=== PATIENT | female | born 1995 | race Caucasian/White ===

== ENCOUNTER 2021-01-27 07:25 | Inpatient (IN) ==
[2021-01-27] MEDS ORDERED: OXYTOCIN 30 UNITS/500 ML BAG IV PRN ×3 (07:53→19:01)
[2021-01-27] MEDS ORDERED: PENICILLIN G POTASSIUM 6 MU in DEXTROSE 5% 250 ML IV STA (07:53)
[2021-01-27] MEDS ORDERED: LACTATED RINGER'S 1,000 ML IV PRN (07:53)
--- NOTE | 2021-01-27 08:05 | History & Physical Report ---
Date of Service January 27, 2021 Assessment & Plan (1) Encounter for induction of labor: Plan: Kaya Read is a 25 y/o at 40 5/7 female presenting to L&D for IOL due to post dates. -Admit to L&D for IOL due to post dates. Received cervical singh yesterday for ripening. -Expect , augment with pitocin. -Epidural prn -GBS+--> treat with penicillin during labor -AB+, Antibody negative Admission and Anticipated Discharge Date Admission Date: January 27, 2021 History of Present Illness Primary Care Provider: NO PCP Kaya Read is a 25 y/o at 40 3/7 female presenting to L&D for IOL due to post dates. Pt has been having some intermittent contractions. No ROM noted at this time. No bloody vaginal discharge reported. Pt had reported to L&D yesterday for examination and had cervical singh placed for ripening. She was D/C'd home and was instructed to return today for IOL. Pt has no questions or complaints at this time. LMP: 04/19/20 : 1 Full term: 0 Premature: 0 Total Number of Induced Abortions: 0 Total Number of Spontaneous Abortions: 0 Ectopics: 0 Multiple births: 0 Number of Living Children: 0 Allergies Allergy/AdvReac Type Severity Reaction Status Date / Time naproxen Allergy Heart Verified 01/26/21 19:40 racing Home Medications Medication Instructions Recorded Confirmed Type doxylamine succinate 25 mg tablet 25 mg PO Q6H PRN 06/11/20 01/27/21 History (Unisom (doxylamine)) prenat.vits,carmen,[id number] 1 tab PO DAILY 06/11/20 01/27/21 History pyridoxine (vitamin B6) 25 mg 25 mg PO BID 06/11/20 01/27/21 History tablet (Vitamin B-6) cholecalciferol (vitamin D3) 50 50 mcg PO DAILY 01/27/21 01/27/21 History mcg (2,000 unit) capsule (Vitamin D3) Patient History Surgical History History of myringotomy S/P tonsillectomy S/P wisdom tooth extraction Family History Grandmother (Maternal) Breast cancer Grandmother (Paternal) Ovarian cancer Pancreatic cancer Social History (Updated 06/11/20 @ 10:04 by Kat Pereira) Smoking Status: Never smoker Second Hand Exposure: No; Hx Alcohol Use: No Hx Substance Use: No Preferred Language: Persian Communication Ability: Effective Bacon De Rinder Required: No Beliefs That Will Affect Care: None marital status: marital status details: Bassem [phone] Current Living Situation: Spouse Current Living Situation Comment: lives with spouse, 1 dog, 1 cat. spouse to change litter. current occupational status: student current occupation: Grad student. Other Information That Helps Us Care for You: No Feels Safe at Home: Yes Safety Concerns: Feels Safe At This Time Assistive Devices: None Review of Systems All systems reviewed & are unremarkable except as noted in HPI & below Physical Exam Physical Exam: General: Alert, oriented, no acute distress Cardiac: Regular rate and rhythm, normal S1, S2. No murmurs appreciated. Respiratory: Clear to auscultation b/l with good air flow entry, symmetric chest rise and fall. No wheezes or crackles. No increased work of breathing or accessory muscle use Abdomen: Gravid, soft, nontender. No guarding or CVA tenderness Skin: No rashes or lesions Extremities: Warm, dry, well-perfused with capillary refill <2s b/l. No lower extremity edema, erythema or swelling. Negative Orlando's sign b/l. Genitourinary: no vaginal lesions, no adnexal mass Manual OB Exam: + cervical dilation 3 cm, + cervical effacement 90% and + station -2 OB Exam Monitor Tracing: + external FHT monitor used, + category I and + normal FHT variability Results & Data ([facility]) Vital Signs (Past 12 Hours) Vital Signs Temp Pulse Resp BP 01/27/21 07:46 36.9 C 97 H 18 124/81 01/27/21 07:38 97 H 124/81
[2021-01-27 08:17] LABS: Hemoglobin 11.8 g/dL (12.0-16.0); Mean Corpuscular Hgb Conc 35.8 g/dL (32-36); Mean Corpuscular Volume 86.6 fL (80-100); Platelet Count 179 K/uL (130-400); RDW Coefficient of Variation 13.2 % (11.5-14.5); RDW Standard Deviation 42.2 fL (36.4-46.3); Red Blood Count 3.81 M/uL (4.2-5.4); White Blood Count 9.23 K/uL (4.8-10.8)
[2021-01-27] MEDS: PENICILLIN G POTASSIUM 3 MU in DEXTROSE 5% 100 ML IV PRN ×2 (12:46→16:51)
[2021-01-27] MEDS ORDERED: BUPIVACAINE 0.25% 30 ML VIAL ONE (12:53)
[2021-01-27] MEDS ORDERED: fentaNYL citrate 100 MCG/2 ML VIAL ONE (12:53)
[2021-01-27] MEDS ORDERED: ePHEDrine sulfate 50 MG/ML AMP ONE (12:53)
[2021-01-27] MEDS ORDERED: SODIUM CHLORIDE 0.9% INJ 10 ML VIAL ONE (12:53)
[2021-01-27] MEDS ORDERED: fentaNYL 2MCG/ML ROPIVACAINE 1.25MG/ML 100 ML BAG EPI ONE (12:54)
--- NOTE | 2021-01-27 13:21 | Anesthesiology Consultation ---
Date of Service January 27, 2021 Assessment & Plan (1) Encounter for pre-operative examination: Chart Review Chart Review: Acceptable Risk for Labor Epidural History Height/Weight Height: 5 ft 2 in Weight: 74.843 kg Allergies Allergy/AdvReac Type Severity Reaction Status Date / Time naproxen Allergy Heart Verified 01/26/21 19:40 racing Medications Home Medications Medication Instructions Recorded Confirmed Last Taken doxylamine succinate 25 mg tablet 25 mg PO Q6H PRN 06/11/20 01/27/21 01/26/21 22:00 (Unisom (doxylamine)) prenat.vits,carmen,[id number] 1 tab PO DAILY 06/11/20 01/27/21 01/26/21 22:00 pyridoxine (vitamin B6) 25 mg 25 mg PO BID 06/11/20 01/27/21 01/26/21 22:00 tablet (Vitamin B-6) cholecalciferol (vitamin D3) 50 50 mcg PO DAILY 01/27/21 01/27/21 01/27/21 06:15 mcg (2,000 unit) capsule (Vitamin D3) Active Medications Generic Name Dose Route Start Last Admin Trade Name Freq PRN Reason Stop Dose Admin Oxytocin 30 units in 500 mls @ 11 mls/hr 01/27/21 07:55 01/27/21 12:45 Pitocin IV 01/29/21 07:54 0.66 units/hr .Q24H PRN 11 mls/hr Labor Induction/Augmentation Titration Protocol 0.66 UNITS/HR Lactated Ringer's 1,000 mls @ 125 mls/hr 01/27/21 07:53 01/27/21 08:40 Lr IV 01/29/21 07:52 125 mls/hr .Q8H PRN Administration L&D Protocol Protocol Penicillin G Potassium 3 mu/ 106 mls @ 100 mls/hr 01/27/21 10:53 01/27/21 12:46 Dextrose IV 02/06/21 10:52 100 mls/hr Q4H PRN Administration Give until delivery Past Medical History Medical History (Updated 01/27/21 @ 13:21 by Wilfredo Mclaughlin MD) Mitral valve prolapse Past Family History Family History Grandmother (Maternal) Breast cancer Grandmother (Paternal) Ovarian cancer Pancreatic cancer Past Surgical History Surgical History History of myringotomy S/P tonsillectomy S/P wisdom tooth extraction Social History Smoking Status: Never smoker Hx Alcohol Use: No Hx Substance Use: No Physical Exam Vital Signs Last Vital Signs Temp 37.1 C 01/27/21 11:31 Pulse 71 01/27/21 12:46 Resp 18 01/27/21 11:31 BP 135/86 01/27/21 12:46 Testing Laboratory Results 01/27/21 08:05
[2021-01-27] MEDS ORDERED: fentaNYL 2MCG/ML ROPIVACAINE 1.25MG/ML 100 ML BAG EPI PRN (13:56)
[2021-01-27] MEDS ORDERED: NALOXONE HCL 0.4 MG/1 ML VIAL/CARP IV PRN (13:56)
[2021-01-27] MEDS ORDERED: ePHEDrine sulfate 50 MG/ML AMP IV PRN (13:56)
[2021-01-27] MEDS ORDERED: ONDANSETRON INJ 2 MG/ML 2 ML VIAL IV PRN (13:56)
--- NOTE | 2021-01-27 18:39 | Delivery Summary ---
Vaginal Delivery Summary Date of Service January 27, 2021 Vaginal Delivery Summary Patient induced for postdates initially with cervical Dow and then Pitocin she spontaneously ruptured membranes she was treated appropriately for group B strep prophylaxis received an epidural delivered a baby in occiput anterior position it should be noted she had a hymenal band which ran from anterior to posterior the store at delivery and I excised the remaining part prior to delayed delivery. There was a small thin band The baby's head was delivered it was clear fluid no nuchal cord gentle traction no excessive force live vigorous male cord clamped and cut cord gases obtained cord blood obtained placenta removed with gentle traction IV Pitocin started uterine tone improved small midline episiotomy had been performed as the patient had reached a point of exhaustion I had offered a small midline episiotomy and she had agreed this was done prior to the last 2 pushes. This was repaired with 3-0 Vicryl there was no extension sponge and instrument counts were correct estimated blood loss 300 mL rectal exam negative for sutures or defects [facility] Vaginal Delivery Charge Delivery Type Details:
[2021-01-27 18:55] LABS: Base Excess Cord Arterial Bld -1.9 mEq/L (-9-1.8); CO2 Cord Arterial Blood 42 mmHg (39.1-73.5); HCO3 Cord Arterial Blood 23 mmol/L (19.7-28.5); Oxygen Sat Cord Arterial Blood 68.7 % (<60); PO2 Cord Arterial Blood 30 mmHg (4.1-31.7); pH Cord Arterial Blood 7.37 (7.1-7.38)
[2021-01-27 18:56] LABS: Base Excess Cord Venous Blood -1.8 mEq/L (-7.7-1.9); Cord Venous Blood HCO3 26 mmol/L (18.4-26.8); Cord Venous Blood PCO2 54 mmHg (30.4-57.2); Cord Venous Blood PO2 20 mmHg (14.1-43.3); Cord Venous Blood pH 7.29 (7.20-7.44); O2 Saturation Cord Venous Bld < 60.0 % (<68)
[2021-01-27] MEDS ORDERED: SUPERCREAM 0.870% 15 GM JAR EXT PRN (19:01)
[2021-01-27] MEDS ORDERED: HYDROCORTISONE ACETATE 25 MG SUPP PR PRN (19:01)
[2021-01-27] MEDS ORDERED: bisacodyL 10 MG SUPP PR PRN (19:01)
[2021-01-27] MEDS ORDERED: ACETAMINOPHEN 325 MG TAB PO PRN (19:01)
[2021-01-27] MEDS ORDERED: DIPHTHERIA/TETANUS/PERTUSSIS 0.5 ML SYR/VIAL IM ONE (19:01)
[2021-01-27] MEDS ORDERED: oxyCODONE/ACETAMINOPHEN 5mg/325mg TAB PO PRN (19:01)
[2021-01-27] MEDS ORDERED: BENZOCAINE 20% AER SPR 82.5 GM CAN EXT PRN (19:01)
--- NOTE | 2021-01-27 19:08 | Anesthesia Procedure Note ---
Date of Service January 27, 2021 Anesthesia Post Epidural Note Vital Signs Vital Signs: Temp Pulse Resp BP Pulse Ox 36.9 C 82 18 118/72 87 L 01/27/21 15:30 01/27/21 19:04 01/27/21 18:45 01/27/21 19:04 01/27/21 18:21 Notes Mental Status: alert / awake / arousable and participated in evaluation Nausea / Vomiting: adequately controlled Pain: adequately controlled Airway Patency, RR, SpO2: stable & adequate BP & HR: stable & adequate Hydration State: stable & adequate Neuraxial Anesthesia: was administered and sensory block is resolving Anesthetic Complications: no major complications apparent Epidural: Removed without complications and With tip intact
[2021-01-27] MEDS: DOCUSATE SODIUM 100 MG CAP PO SCH (20:29)
[2021-01-27] MEDS: IBUPROFEN 600 MG TAB PO PRN (20:29)
[2021-01-27] MEDS ORDERED: PYRIDOXINE HCL 50 MG TAB PO SCH (21:00)
[2021-01-28] MEDS: IBUPROFEN 600 MG TAB PO PRN ×3 (01:38→19:43)
--- NOTE | 2021-01-28 07:15 | Obstetrical Progress Note ---
Date of Service <Bright Mandujano DO - Last Filed: 01/28/21 07:31> January 28, 2021 Assessment & Plan <Bright Mandujano DO - Last Filed: 01/28/21 07:31> (1) Encounter for care and examination after delivery: 25 yo PPD 1 s/p at 40weeks -Continue routine care; keep 24 hours. -Vitals reviewed- HDS, afebrile -AB+, GBS+, Rubella immune. Treated with penicillin during labor. -Encourage ambulation, regular diet -Pain control with ibuprofen, acetaminophen PRN -Encouraged -Hgb ordered. <Navneet Arellano MD, FACOG - Last Filed: 01/28/21 07:47> (1) Encounter for care and examination after delivery: Subjective <Bright Mandujano - Last Filed: 01/28/21 07:31> Ambulation: ambulating normally Voiding: no voiding problems Passing Gas:: Yes Diet Tolerance:: regular diet Lochia:: Moderate Feeding Type:: breast feeding Current Pain Level(1-10): 1 PPD 1 s/p . Patient seen and examined at bedside. Reports 2 episodes of syncope after voiding. This occurred early in the post period and has not occurred today. Review of Systems All systems reviewed & are unremarkable except as noted in HPI & below Physical Exam <Bright Mandujano DO - Last Filed: 01/28/21 07:31> General: Alert, oriented, no acute distress Cardiac: Regular rate and rhythm, normal S1, S2. No murmurs appreciated. Respiratory: Clear to auscultation b/l with good air flow entry, symmetric chest rise and fall. No wheezes or crackles. No increased work of breathing or accessory muscle use Abdomen: Soft, nontender, nondistended. Fundus firm and palpable at 2 cm below umbilicus. No guarding or rebound. Skin: No rashes or lesions Extremities: Warm, dry, well-perfused with capillary refill <2s b/l. No lower extremity edema, erythema or swelling. Negative Orlando's sign b/l. Results & Data ([facility]) <Bright Mandujano - Last Filed: 01/28/21 07:31> Vital Signs (Past 12 Hours) Vital Signs Temp Pulse Pulse Resp BP BP 01/28/21 05:25 36.6 C 81 18 115/76 01/28/21 00:30 36.6 C 71 16 133/87 01/27/21 21:18 36.7 C 79 18 125/81 01/27/21 20:46 200 H 115/77 01/27/21 20:45 18 01/27/21 20:34 103 H 116/78 01/27/21 20:19 103 H 125/81 01/27/21 20:15 18 01/27/21 20:04 103 H 138/87 01/27/21 19:49 77 128/84 01/27/21 19:45 77 18 128/84 01/27/21 19:34 90 132/82 01/27/21 19:30 18 01/27/21 19:19 72 121/78 01/27/21 19:15 18 <Navneet Arellano MD, FACOG - Last Filed: 01/28/21 07:47> Co-Signing Physician Notes Resident Physician Supervision Note: I was present with Dr. Mandujano during the history and exam. I discussed the case with the resident and agree with the findings and plan as documented in the note. Any exceptions or clarifications are listed here: [None] Documented By: Navneet Arellano MD, FACOG
[2021-01-28 08:09] LABS: Hematocrit (blood only) 24.3 % (37-47); Hemoglobin 8.5 g/dL (12.0-16.0)
[2021-01-28] MEDS: PRENATAL VITAMIN 1 TAB PO SCH (08:32)
[2021-01-28] MEDS: DOCUSATE SODIUM 100 MG CAP PO SCH ×2 (08:32→19:44)
[2021-01-28] MEDS: CHOLECALCIFEROL 1,000 UNITS 25 MCG TAB PO SCH (08:55)
[2021-01-28] MEDS ORDERED: NON-FORMULARY MEDICATION (Prenat.Vits,Cal,Min-Iron-Folic tablet) PO SCH (09:00)
[2021-01-28] MEDS ORDERED: bisacodyL 5 MG TABEC PO SCH (20:00)
[2021-01-28 21:07] VITALS: O2SAT 99
--- NOTE | 2021-01-29 07:10 | Obstetrical Progress Note ---
Date of Service <Bright Mandujano DO - Last Filed: 01/29/21 07:10> January 29, 2021 Assessment & Plan <Bright Mandujano DO - Last Filed: 01/29/21 07:10> (1) Encounter for care and examination after delivery: 25 yo PPD 2 s/p at 40weeks -Continue routine care; expect D/C if no complications today. -Vitals reviewed- HDS, afebrile -AB+, GBS+, Rubella immune. Treated with penicillin during labor. -Encourage ambulation, regular diet -Pain control with ibuprofen, acetaminophen PRN -Encouraged -Hgb ordered. 8.5 yesterday. <Alisia Barrientos MD, FACOG - Last Filed: 01/29/21 07:59> (1) Encounter for care and examination after delivery: Subjective <Bright Mandujano DO - Last Filed: 01/29/21 07:10> Ambulation: ambulating normally Voiding: no voiding problems Passing Gas:: Yes Diet Tolerance:: regular diet Lochia:: Moderate Feeding Type:: breast feeding Current Pain Level(1-10): 2 PPD 2 s/p . Patient seen and examined at bedside. Reports no acute overnight events. No additional syncopal episodes. Physical Exam <Bright Mandujano DO - Last Filed: 01/29/21 07:10> General: Alert, oriented, no acute distress Cardiac: Regular rate and rhythm, normal S1, S2. No murmurs appreciated. Respiratory: Clear to auscultation b/l with good air flow entry, symmetric chest rise and fall. No wheezes or crackles. No increased work of breathing or accessory muscle use Abdomen: Soft, nontender, nondistended. Fundus firm and palpable at 2 cm below umbilicus. No guarding or rebound. Skin: No rashes or lesions Extremities: Warm, dry, well-perfused with capillary refill <2s b/l. No lower extremity edema, erythema or swelling. Negative Orlando's sign b/l. Results & Data ([facility]) <Bright Mandujano DO - Last Filed: 01/29/21 07:10> Vital Signs (Past 12 Hours) Vital Signs Temp Pulse Resp BP Pulse Ox 01/29/21 00:35 36.8 C 84 18 127/80 01/28/21 19:40 36.8 C 98 H 18 126/83 99 <Alisia Barrientos MD, FACOG - Last Filed: 01/29/21 07:59> Co-Signing Physician Notes Resident Physician Supervision Note: I was present with Dr. Mandujano during the history and exam. I discussed the case with the resident and agree with the findings and plan as documented in the note. Any exceptions or clarifications are listed here: [None] Documented By: Alisia Barrientos MD, FACOG
[2021-01-29 08:04] LABS: Hematocrit (blood only) 24.7 % (37-47); Hemoglobin 8.5 g/dL (12.0-16.0)
[2021-01-29] MEDS: DOCUSATE SODIUM 100 MG CAP PO SCH (08:52)
[2021-01-29] MEDS: PRENATAL VITAMIN 1 TAB PO SCH (08:52)
[2021-01-29] MEDS: CHOLECALCIFEROL 1,000 UNITS 25 MCG TAB PO SCH (08:52)
[2021-01-29] MEDS: IBUPROFEN 600 MG TAB PO PRN (08:53)
[2021-01-29 08:55] VITALS: BP 114/73; PULSE 76; TEMP 98.1
== END 2021-01-29 14:25 | disposition home or self-care (01) | DRG 807 ==
LOC: 4S1 07:25 → 4S2 21:15
DX: O75.81 Maternal exhaustion complicating labor and delivery; Z37.0 Single live birth; Z3A.40 40 weeks gestation of pregnancy; O48.0 Post-term pregnancy; Z79.899 Other long term (current) drug therapy; Z88.6 Allergy status to analgesic agent; O99.824 Streptococcus B carrier state complicating childbirth